=== PATIENT | male | born 1950 | race Caucasian/White ===

== ENCOUNTER → 2018-02-09 | Outpatient (CLI) | payer MEDICARE ==
[~2018-02-09] MED LIST: IOPAMIDOL 370 MG/ML 200 ML INFUS..BTL INJ ONE; SODIUM CHLORIDE 0.9% 50ML 50 ML ONE
[2018-02-09 10:22] LABS: BLOOD UREA NITROGEN 22 mg/dL (7-26); BUN/CREATININE RATIO 22 (6-25); CREATININE, SERUM 1.02 mg/dL (0.72-1.25); EST GLOMERULAR FILTRATION RATE > 60 ML/MIN (60-)
--- NOTE | 2018-02-12 14:02 | Diagnostic Imaging Report ---
EXAMINATION: CT angiogram of the neck CLINICAL HISTORY:Evaluate for carotid artery stenoses COMPARISON STUDIES:None TECHNIQUE: Axial images were obtained from the thoracic inlet. Coronal and sagittal images reconstructed from the axial data. Intravenous contrast: 100 cc of [id number]. FINDINGS: If present, stenosis of the carotid bulbs is measured based on NASCET criteria i.e area of maximum stenosis compared to the cervical ICA distal to the bulb. Aortic arch and major vessels: Patent. No abnormalities. Common carotid arteries: Right: Patent. No abnormalities. Left :Patent. No abnormalities. Carotid bulbs: Right: Soft and calcified plaque without hemodynamically significant stenosis (less than 50%. Left : Soft and calcified plaque results in moderate stenoses (about 50%). Internal carotid arteries: Right: Patent. No abnormalities. Left: Patent. No abnormalities. Vertebral arteries: Patent. No abnormalities. Incidental findings: Partially visualized postoperative changes in the paranasal sinuses with possible retention cyst in the right maxillary sinus, and mild mucosal inflammatory thickening with partial opacification of the bilateral frontal and ethmoidal sinuses. IMPRESSION: 1. Moderate stenosis of the left carotid bulb (50-69%). 2. Mild stenosis of the right carotid bulb (less than 50%). 3. Unremarkable vertebral arteries. Signed by: Dr. Fatou Winslow M.D. on 02/12/2018 1:58 PM
== END ==
LOC: CT 09:38
PROVIDERS: ATTEND Internal Medicine Cardiovascular Disease
DX: I65.23 Occlusion and stenosis of bilateral carotid arteries (principal)
CPT/HCPCS: 36415; 70498; 82565; 84520; Q9967

== ENCOUNTER → 2022-08-12 | Day surgery (SDC) | payer MEDICARE ==
[2022-08-04 09:01] LABS: BASOPHILS % 0.6 % (0.0-1.0); EOSINOPHILS # (AUTO) 0.3 (0.0-0.4); EOSINOPHILS % 5.9 % (0.0-6.0); HEMATOCRIT 45.4 % (38.2-49.6); LYMPHOCYTES # (AUTO) 1.2 (1.0-3.2); LYMPHOCYTES % 22.8 % (18.0-39.1); MEAN CORPUSCULAR HEMOGLOBIN 30.7 pg (28-32); MEAN CORPUSCULAR VOLUME 92.8 fL (81-99); MONOCYTES # (AUTO) 0.5 (0.2-0.8); NEUTROPHILS # (AUTO) 3.3 (2.1-6.9); NEUTROPHILS % 61.1 % (38.7-80.0); PLATELET COUNT 165 x10e3/uL (140-360); RED BLOOD COUNT 4.89 x10e6/uL (4.3-5.7)
[2022-08-04 09:18] LABS: ALANINE AMINOTRANSFERASE 37 IU/L (0-55); ALBUMIN 3.8 g/dL (3.5-5.0); ALBUMIN/GLOBULIN RATIO 1.4 (0.8-2.0); ALKALINE PHOSPHATASE 60 IU/L (40-150); ANION GAP 14.4 mmol/L (8-16); BLOOD UREA NITROGEN 21 mg/dL (7-26); BUN/CREATININE RATIO 17 (6-25); CALCIUM 9.6 mg/dL (8.4-10.2); CARBON DIOXIDE 27 mmol/L (22-29); CHLORIDE 101 mmol/L (98-107); CREATININE, SERUM 1.22 mg/dL (0.72-1.25); GLUCOSE 154 mg/dL (74-118); POTASSIUM 4.4 mmol/L (3.5-5.1); SODIUM 138 mmol/L (136-145)
[2022-08-04 11:02] LABS: CHOL/HDL RATIO 3.6 (3.9-4.7); CHOLESTEROL 164 MD/DL (0-199); HDL CHOLESTEROL 46 MG/DL (40-60); LDL CHOLESTEROL 95 MG/DL (60-130); TRIGLYCERIDES 117 MG/DL (0-149)
[2022-08-12] VITALS (11 sets, daily range): BP systolic 118–140; BP diastolic 66–108
[~2022-08-12] VITALS: Ht 180.3 cm; Wt 108.9 kg
[~2022-08-12] MED LIST changes: +FENTANYL CITRATE/PF 100MCG/2 ML INJ ONE; +FLOMAX0.4 MG PO; +HEPARIN SOD/SOD CHLORIDE 2,000 ML ONE; +IOPAMIDOL 370 MG/ML 100 ML INFUS..BTL INJ ONE; -IOPAMIDOL 370 MG/ML 200 ML INFUS..BTL INJ ONE; +LIVALO4 MG PO; +LOSARTAN POTASS25 MG PO; +METFORMIN HCL500 MG PO; +MIDAZOLAM HCL 2 MG/2 ML VIAL ONE; +PLAVIX75 MG PO; +PROAIR HFA INH8.5 GM; +SODIUM CHLORIDE 0.9% 1000ML 1,000 ML ONE; -SODIUM CHLORIDE 0.9% 50ML 50 ML ONE; +SYNTHROID50 MCG PO; +TRELEGY ELLIPT1 EAC1; +VERAPAMIL HCL 2.5 MG/ML 2 ML VIAL ONE
[2022-08-12 09:55] LABS: ALBUMIN/GLOBULIN RATIO 1.2 (0.8-2.0); CALCIUM 9.8 mg/dL (8.4-10.2); CREATININE, SERUM 1.19 mg/dL (0.72-1.25)
== END | disposition home or self-care (01) ==
LOC: CATH LAB 09:00
PROVIDERS: ATTEND Internal Medicine
DX: I25.118 Atherosclerotic heart disease of native coronary artery with other forms of angina pectoris (principal); I10 Essential (primary) hypertension; I73.9 Peripheral vascular disease, unspecified; I71.4 Abdominal aortic aneurysm, without rupture; I82.493 Acute embolism and thrombosis of other specified deep vein of lower extremity, bilateral; J44.9 Chronic obstructive pulmonary disease, unspecified; E78.2 Mixed hyperlipidemia; R09.89 Other specified symptoms and signs involving the circulatory and respiratory systems; E66.9 Obesity, unspecified; E03.9 Hypothyroidism, unspecified; E11.59 Type 2 diabetes mellitus with other circulatory complications; Z71.82 Exercise counseling; Z71.3 Dietary counseling and surveillance; Z01.812 Encounter for preprocedural laboratory examination; Z20.822 Contact with and (suspected) exposure to COVID-19; Z79.02 Long term (current) use of antithrombotics/antiplatelets; Z79.899 Other long term (current) drug therapy; Z68.34 Body mass index [BMI] 34.0-34.9, adult; Z82.49 Family history of ischemic heart disease and other diseases of the circulatory system
CPT/HCPCS: 0223U; 36415 ×2; 76937; 80053 ×2; 80061; 85025; 93458; C1887; J2250; J3010; J7030; Q9967; 99152